=== PATIENT | female | born 1930 | race Caucasian/White ===

== ENCOUNTER 2016-07-20 08:31 | Inpatient (IN) | payer OTHER ==
--- NOTE | ~2016-07-20 | EKG ---
PATIENT: TOY SCHWARTZ UNIT #: [id number] Ventricular Rate: 81 BPM Atrial Rate: 81 BPM P-R Interval: 142 ms QRS Duration: 132 ms Q-T Interval: 382 ms QTC Calculation(Bezet): 443 ms P Sarg[place]: 85 degrees Calculated R Sarg[place]: 108 degrees Calculated T Sarg[place]: 28 degrees Diagnosis Line: Electronic ventricular pacemaker Diagnosis Line: When compared with ECG of 25-JUL-2016 10:46, Diagnosis Line: (unconfirmed) Diagnosis Line: Vent. rate has increased BY 8 BPM Diagnosis Line: Confirmed by LEOPOLDO MENDEZ MD ([id number]) on Diagnosis Line: 07/28/2016 1:11:55 PM INTERPRETING MD: CECIL
--- NOTE | ~2016-07-20 | EKG ---
PATIENT: TOY SCHWARTZ UNIT #: [id number] Ventricular Rate: 116 BPM Atrial Rate: 116 BPM P-R Interval: 146 ms QRS Duration: 130 ms Q-T Interval: 328 ms QTC Calculation(Bezet): 455 ms P [place]: 74 degrees Calculated R [place]: 106 degrees Calculated T [place]: 52 degrees Diagnosis Line: Sinus tachycardia Diagnosis Line: Rightward axis Diagnosis Line: Non-specific intra-ventricular conduction block Diagnosis Line: Abnormal ECG Diagnosis Line: When compared with ECG of 02-JUN-2015 17:44, Diagnosis Line: Vent. rate has increased BY 51 BPM Diagnosis Line: Non-specific intra-ventricular conduction block Diagnosis Line: has replaced Right bundle branch block Diagnosis Line: Confirmed by SHELDON SABILLON MD ([id number]) on 07/21/2016 Diagnosis Line: 10:35:54 AM INTERPRETING MD: RAMANDEEP MTZ
--- NOTE | ~2016-07-20 | CO ---
Unit #: [id number] #: [id number] Patient: TOY SCHWARTZ [id number] [address] [place], [place] [address] [id number] E MR#: [id number] NAME: TOY SCHWARTZ ROOM: Age: 86 Sex: F Admission Date: 07/20/2016 : 1930 Attending Physician: Portillo Mayo M.D. Primary Care Physician: Portillo Adame M.D. Consultation Date: 07/20/2016 CONSULTATION REPORT CHIEF COMPLAINT Shortness of breath. HISTORY OF PRESENT ILLNESS The patient is an 86-year-old female who has chronic obstructive pulmonary disease, bronchiectasis and is followed by Dr. Wiggins in our office. She has had a several day history of shortness of breath, wheezing and sputum production. She called the office and she was treated with doxycycline and a Medrol Dosepak with minimal improvement. Shortness of breath worsened and she presented here. It has been a gradually increasing degree of shortness of breath. She has had wheezing and mucopurulent sputum, but denies any fever or hemoptysis. She has had some left-sided pain that is worse with inhalation. She denies trauma. PAST MEDICAL HISTORY 1. Chronic obstructive pulmonary disease. 2. Bronchiectasis. 3. Chronic respiratory failure on 4 liters at home. 4. She has some type of arrhythmia requiring pacemaker insertion. Suspect sick sinus syndrome. She denies heart failure or coronary artery disease. 5. She has some degree of anxiety/depression. 6. Gastroesophageal reflux disease. 7. Diverticulosis. 8. Hyperlipidemia. SOCIAL HISTORY Remote tobacco use. She lives alone at home. She denies any recent hospitalizations. FAMILY HISTORY No familial lung disease. ALLERGIES Penicillin. She does not remember the reaction, "it was so long ago." Sulfa and codeine. HOME MEDICATIONS 1. Breo daily. 2. Duo-Nebs p.r.n. 3. Simvastatin. 4. Lasix. 5. Clonazepam. 6. Wellbutrin. Unit #: [id number] #: [id number] Patient: TOY SCHWARTZ 7. Aspirin. 8. Vitamin K is listed daily for unclear reasons. 9. Potassium daily. 10. Variety of multivitamins, including vitamin B12. REVIEW OF SYSTEMS No anginal type chest pain. No hemoptysis. No difficulty swallowing. No abdominal pain, melena or hematochezia, hematuria or dysuria, focal weakness, paresthesia. She has had some leg swelling if she does not take her Lasix, but that is relatively controlled if she takes her Lasix. No fever, chills, weight loss. Further review of systems negative. PHYSICAL EXAMINATION VITALS: Temperature 99.4, pulse 116, respiratory rate 20, blood pressure 159/70. She currently in on 4 liters with saturations 96%. HEENT: Pupils equal, round and reactive to light. Sclerae anicteric. Head atraumatic. No supraclavicular or cervical adenopathy appreciated. CHEST: Tight expiratory wheeze, best heard posteriorly. She has scattered crackles, but no definite consolidation. HEART: Regular rate and rhythm. No definite murmur, rub or gallop. ABDOMEN: Soft and nontender. No hepatomegaly or rebound. EXTREMITIES: No clubbing or cyanosis. Trace edema at best. Legs are nontender. Calves are nontender. Salbador sign is negative. NEUROLOGIC: Grossly intact. No focal muscle or sensory deficits. DIAGNOSTIC STUDIES IMAGING: Chest x-ray has some chronic changes. There may be some interstitial edema to my review. The radiologist is concerned about a left lower lobe pneumonia. The infiltrate is small and nonspecific. Pneumonia could not be ruled out. LABORATORY: BUN 14, creatinine 0.7, BNP 571. Lactic acid 1.1. CBC, white blood cell count 15.7, hemoglobin 12.3, platelets normal. Blood cultures performed and are pending. CARDIOVASCULAR: EKG appears to be a right bundle branch block. ASSESSMENT 1. Chronic obstructive pulmonary disease with exacerbation. 2. Chronic respiratory failure on 4 liters. 3. Abnormal chest x-ray. Possibly some degree of edema. Some degree of left lower lobe pneumonia. 4. History of pacemaker, followed by Dr. Hicks. 5. Bronchiectasis. 6. Medical problems listed above. PLAN Admission to the hospital. IV steroids. IV antibiotics for possible community acquired pneumonia. I will check a procalcitonin level. An echocardiogram will be performed for left ventricular function and PA pressures. A trial of IV Lasix will be given. Dictated by... Jass Haq M.D. ALEJANDRO/jed Unit #: [id number] #: [id number] Patient: TOY SCHWARTZ TD: 07/20/2016 12:00 JOB #: [id number] CC: Dona Mckee M.D. Matthew Bessen, M.D. CONSULTATION REPORT Page 1 of 1 X Jass Haq MD CONSULTATION REPORT
--- NOTE | ~2016-07-20 | EKG ---
PATIENT: TOY SCHWARTZ UNIT #: [id number] Ventricular Rate: 80 BPM Atrial Rate: 68 BPM P-R Interval: 136 ms QRS Duration: 166 ms Q-T Interval: 432 ms QTC Calculation(Bezet): 498 ms Calculated R [place]: -25 degrees Calculated T [place]: 123 degrees Diagnosis Line: Demand pacemaker; interpretation is based on Diagnosis Line: intrinsic rhythm Diagnosis Line: Sinus rhythm with marked sinus arrhythmia with Diagnosis Line: Premature ventricular complexes or Fusion Diagnosis Line: complexes Diagnosis Line: Left bundle branch block Diagnosis Line: Abnormal ECG Diagnosis Line: When compared with ECG of 20-JUL-2016 09:09, Diagnosis Line: Electronic demand pacing is now Present Diagnosis Line: Fusion complexes are now Present Diagnosis Line: Premature ventricular complexes are now Present Diagnosis Line: Left bundle branch block has replaced Non-specific Diagnosis Line: intra-ventricular conduction block Diagnosis Line: Confirmed by GABINO ANDERSON MD ([id number]) on 07/25/2016 Diagnosis Line: 10:00:34 PM INTERPRETING MD: JUSTIN MTZ
--- NOTE | ~2016-07-20 | CR72 ---
[facility] A Service of [facility] & [facility] RADIOLOGY TEXT RESULTS PATIENT: TOY SCHWARTZ LOCATION: A 216-01 : 30 UNIT #: [id number] AGE: [address]: Jass Haq MD SEX: F ORDER DR: [id number] [facility] [address] [place], [place] [address] [id number] E MR#: [id number] Acc #: [id number] NAME: TOY SCHWARTZ : 1930 SEX: F STUDY DATE/TIME: 07/20/2016 9:16 UNIT: BALDEV ROOM: STUDY DESCRIPTION: CR Chest Single View Portable Attending Physician: Portillo Mayo M.D. Ordering Physician: Portillo Mayo M.D. Primary Care Physician: Portillo Adame M.D. MEDICAL IMAGING REPORT This report is preliminary unless electronic signature is present EXAM AP portable chest 07/20/2016 09:16 HISTORY 86-year-old female with shortness of breath for 1 week. Former smoker. Pacemaker in place. COMPARISON AP portable chest radiograph 08/13/2015. FINDINGS Lungs are hyperinflated with emphysematous changes. Features of interstitial fibrosis are noted, also demonstrated to better advantage on the 02/09/2015 CT chest. Blunting of bilateral costophrenic angles are unchanged from prior examination, may represent chronic pleural scarring. Stable mild cardiac enlargement. Left chest wall pacemaker and leads appear stable. No visible pneumothorax. No acute osseous abnormality. Coarse interstitial thickening is present predominantly within the lower lung zones and within the periphery of the bilateral mid to upper lung zones, very similar to the 08/13/2015 examination, allowing for slight differences in technique. It also has a very similar appearance to the more remote 11/08/2014 examination. There is, however, more focal opacity in the medial left base obscuring the diaphragmatic margin. Superimposed atelectasis or pneumonia at that location is not excluded. IMPRESSION 1. Focal airspace disease in the medial left lung base obscuring the diaphragmatic margin appears new compared to prior studies. Left lower lobe atelectasis or pneumonia is not excluded. 2. Coarse interstitial fibrotic changes are present within both lungs, similar to the more remote study from 2015. Emphysematous changes. [facility] A Service of [facility] RADIOLOGY TEXT RESULTS PATIENT: TOY SCHWARTZ LOCATION: [facility] 216-01 : 30 UNIT #: [id number] AGE: [address]: Jass Haq MD SEX: F ORDER DR: Dictated by... Deonna Nayak M.D. THIS IS AN ELECTRONICALLY VERIFIED REPORT Deonna Nayak M.D. at 07/22/2016 7:13 AM CLAIRE/cynthia TD: 07/20/2016 09:37 JOB #: [id number] MEDICAL IMAGING REPORT Page 1 of 1 COPY
--- NOTE | ~2016-07-20 | CR72 ---
[facility] A Service of [facility] RADIOLOGY TEXT RESULTS PATIENT: TOY SCHWARTZ LOCATION: [place] [address]- : 30 UNIT #: [id number] AGE: [address]: Jass Haq MD SEX: F ORDER DR: [id number] [facility] [address] [place], [place] [address] [id number] I MR#: [id number] Acc #: [id number] NAME: TOY SCHWARTZ : 1930 SEX: F STUDY DATE/TIME: 07/26/2016 UNIT: [facility] ROOM: [facility] STUDY DESCRIPTION: CR Chest Single View Portable Attending Physician: Jass Haq M.D. Ordering Physician: Steve Wiggins M.D. Primary Care Physician: Portillo Adame M.D. MEDICAL IMAGING REPORT This report is preliminary unless electronic signature is present EXAM Chest 07/26/2016 1227 hours HISTORY 86-year-old woman with shortness of air, wheezing and COPD for 1 week. COMPARISON 07/21/2016. FINDINGS Portable upright chest demonstrates normal cardiac, mediastinal and hilar contours. There is stable dual-lead left subclavian pacer. The lungs are hyperinflated, likely with underlying emphysematous change. There is mild chronic interstitial change similar to 07/21/2016. There is stable blunting of both costophrenic sulci. IMPRESSION No appreciable change from 07/21/2016. There is underlying emphysematous change with chronic bilateral interstitial changes which are stable. There is chronic blunting of both costophrenic sulci consistent with small effusions or pleural thickening, unchanged from 07/21/2016. Dictated by... Sosa Park M.D. THIS IS AN ELECTRONICALLY VERIFIED REPORT Sosa Park M.D. at 07/27/2016 9:16 AM TRACE/lito TD: 07/26/2016 16:14 JOB #: [id number] [facility] A Service of [facility] RADIOLOGY TEXT RESULTS PATIENT: TOY SCHWARTZ LOCATION: [facility] 55- : 30 UNIT #: [id number] AGE: [address]: Jass Haq MD SEX: F ORDER DR: MEDICAL IMAGING REPORT Page 1 of 1 COPY
--- NOTE | ~2016-07-20 | DS ---
Unit #: [id number] #: [id number] Patient: TOY SCHWARTZ [id number] [place] [id number] I MR#: [id number] NAME: TOY SCHWARTZ ROOM: 557 Age: 86 Sex: F Admission Date: 07/20/2016 : 1930 Discharge Date: 07/27/2016 Attending Physician: Jass Haq M.D. Primary Care Physician: Portillo Adame M.D. DISCHARGE SUMMARY DISCHARGE DIAGNOSES 1. Acute systolic congestive heart failure. 2. Chronic obstructive pulmonary disease exacerbation. 3. Acute and chronic hypoxic respiratory failure. 4. Bronchiectasis. 5. Mobitz type II wilberto arrhythmia with right bundle branch block requiring dual-chamber permanent pacemaker. 6. Epistaxis, resolved. 7. Constipation. 8. Coronary artery disease, status post stent, I believe to the mid left anterior descending. DISCHARGE MEDICATIONS 1. Combivent nebulizer q.i.d. plus p.r.n. 2. Prednisone 40 mg for two days, decrease by 10 mg every two days until off. 3. Mag-Ox 400 mg daily. 4. Wellbutrin XL 150 mg daily. 5. Clonazepam 0.5 mg b.i.d. as needed for anxiety. 6. Coreg 6.25 mg twice daily. 7. Fluticasone/vilanterol one inhalation daily (Breo) 100. 8. Lasix 40 mg p.o. daily. 9. Simvastatin 80 mg p.o. nightly. 10. Lisinopril 10 mg daily. 11. Zithromax 250 daily x3 days. 12. Multivitamin one daily. 13. Aspirin 81 mg daily. 14. Brilinta 90 mg twice daily. 15. Spironolactone 25 mg daily. 16. Nitroglycerin 0.4 mg subcutaneous every five minutes x3 as needed for chest pain. 17. Ascorbic acid 500 mg daily. 18. Cyanocobalamin 1000 mg daily. 19. Vision Formula 50+ one tablet daily. 20. Colace 100 mg b.i.d. 21. Lactulose 30 p.o. q.4 hours p.r.n. constipation. 22. Continue home oxygen at current level. 23. [place] Nasal [place] as needed. HOSPITAL COURSE The patient has a history of underlying COPD and chronic respiratory failure, maintained on O2 at 4 L. She presented with increasing shortness of breath. She had been treated as an outpatient with antibiotics, Medrol Dosepak without improvement and was admitted. She is followed by Unit #: [id number] #: [id number] Patient: TOY SCHWARTZ at [facility] and by myself in my office for COPD. She has a history of permanent pacemaker. Upon admission, her chest x-ray showed chronic changes. No acute infiltrate. BMP was unremarkable. White count was 15,700, hematocrit was 39, platelet count was normal. She was admitted, treated with inhaled bronchodilators, IV Solu Medrol, covered with antibiotics. Myocardial infarction was ruled out. She had an echocardiogram done which showed severely decreased ejection fraction of 20% to 25% with moderate generalized hypokinesis of the LV. There is also grade 1 diastolic dysfunction. There was moderately enlarged right ventricular cavity with reduced right ventricular function, moderate mitral regurgitation with posteriorly directed jet. She was seen by cardiology. She was gently diuresed. Medications were adjusted. She underwent cardiac cath, was found to have a mid LAD lesion which was stented. She was placed on (1) . Followup chest x-ray was done and showed no change. Previous CT scans have demonstrated COPD and bronchiectasis. She is now being discharged to rehab and will follow up in my office in approximately one month and follow up with cardiology per their recommendations. Dictated by... Dona Hanna/mariah TD: 07/27/2016 16:35 JOB #: [id number] DISCHARGE SUMMARY Page 1 of 1 X Steve Wiggins MD X DISCHARGE SUMMARY
--- NOTE | ~2016-07-20 | CO ---
Unit #: [id number] #: [id number] Patient: TOY SCHWARTZ [id number] [address] [address] [id number] I MR#: [id number] NAME: TOY SCHWARTZ ROOM: 216 Age: 86 Sex: F Admission Date: 07/20/2016 : 1930 Attending Physician: Jass Haq M.D. Primary Care Physician: Portillo Adame M.D. CONSULTATION REPORT REASON FOR CONSULTATION We were asked to see for congestive heart failure management. HISTORY OF PRESENT ILLNESS Ms. Schwartz presented with a week and a half history of worsening shortness of air. This lady has a history of severe COPD, 4 L O2 dependent, who has chronic shortness of breath that worsened over the last week and a half. She did have a round of antibiotics, doxycycline, and Medrol Dosepak for complaints of shortness of air, wheezing, and sputum production, but she did not improve, so she presented to the hospital. She states that on her left lung, she has pain that is worse with inhalation. She has a history of following with Dr. Hicks in our office. She had a bradyarrhythmia second-degree Mobitz II AV block and right bundle branch block and underwent a permanent pacemaker on 08/13/2015, [employer]onic Adaptdonna with Dr. Huang. She has a history of dyslipidemia, remote tobacco abuse, as well as high cholesterol. PAST MEDICAL HISTORY 1. Severe COPD, 4 L O2 dependent 26/09. 2. Obstructive sleep apnea. 3. Bronchiectasis. 4. Chronic respiratory failure. 5. Mobitz II Bradyarrhythmia with right bundle branch block, requiring dual-chamber permanent pacemaker. 6. Gastroesophageal reflux disease. 7. Diverticulitis. 8. Dyslipidemia. 9. Anxiety and depression disorder. SOCIAL HISTORY Quit tobacco somewhere around 1993 or before. She is . FAMILY HISTORY She does have a brother and a father, who had heart disease, what she knows is nonspecific. PAST SURGICAL HISTORY Cholecystectomy, tonsillectomy, hysterectomy, evacuation of a subdural hematoma, EGD in 2007 which showed chronic gastritis, permanent pacemaker on 08/13/2015, Medtronic Adapta with Dr. Huang. HOME MEDICATIONS Doxycycline 100 mg b.i.d. for 5 days that was started on 07/16/2016; Unit #: [id number] #: [id number] Patient: TOY SCHWARTZ Medrol Dosepak 4 mg daily for 6 days, which was tapered; Breo Ellipta 100/25 one inhalation daily; ipratropium and albuterol mini-nebs q.i.d.; Zocor 80 mg daily; Vision formula vitamin daily; vitamin E 1000 units daily; vitamin C 500 mg daily; multivitamin tablet daily; vitamin B12 1000 mcg daily; potassium gluconate 595 mg daily. ALLERGIES The patient is allergic to penicillin, sulfa, and codeine. REVIEW OF SYSTEMS CONSTITUTIONAL: No fevers, no chills. HEENT: No difficulty swallowing. CHEST: No chest pain or chest pressure. No burning. Positive for chronic shortness of air. GI: No diarrhea. No constipation. No bright red bleeding per rectum. No melena. : No hematuria. EXTREMITIES: Positive lower extremity edema. NEUROLOGIC: No syncope. No falls. PHYSICAL EXAMINATION GENERAL: Well developed, well nourished, elderly white female, who is a fairly good historian. Daughter at bedside. In no acute distress. VITAL SIGNS: Temperature 98.3, pulse 92, respirations 18, blood pressure 126/74, 5 feet 0 inches, weight 69 kg. HEENT: Normocephalic and atraumatic. No xanthelasma. Jugular is only mildly full. LUNGS: Decreased bases bilaterally. Right base with crackles and an inspiratory pop. Wheezing anteriorly. HEART: S1 and S2. No S3, S4. Soft systolic murmur. No lift. ABDOMEN: Positive bowel sounds. EXTREMITIES: 1 to 2+ bilateral lower extremity pitting edema. 2+ pulses bilaterally. Mildly kyphotic spine. NEUROLOGIC: Speech clear and appropriate. No facial drooping. Moving all extremities spontaneously with equal strength. DIAGNOSTIC STUDIES IMAGING STUDIES: Chest x-ray on 07/21/2016 shows stable background interstitial opacity. Small bilateral pleural effusions. Stable density in the left base, which may be atelectasis or pneumonia. LABORATORY RESULTS: Chemistry; sodium 142, potassium 3.6, chloride 97, CO2 33, BUN 21, creatinine 0.7, glucose 159. Troponin 0.03. Brain natriuretic peptide 571. Lactic acid 1.7. Procalcitonin 0.09. Hematology; hemoglobin 11.8, hematocrit 37.3, white blood cell count 16.6, platelet count 441. ASSESSMENT AND PLAN 1. Acute systolic congestive heart failure with new left ventricular dysfunction. 2D echocardiogram shows an ejection fraction of 20% to 25%. Moderate generalized hypokinesis of the left ventricle, [id number] concentric left ventricular hypertrophy. E-to-E is 19, grade 1 impaired relaxation, moderate mitral regurgitation, mild tricuspid regurgitation with right ventricular systolic pressure of 21. 2. History of second-degree AV block, right bundle branch block with bradyarrhythmia, requiring dual-chamber pacemaker. 3. Chronic severe chronic obstructive pulmonary disease with acute exacerbation of chronic obstructive pulmonary disease. Unit #: [id number] #: [id number] Patient: SCHWARTZ,TOY 4. History of bronchiectasis. The patient was seen in consultation with Dr. Alvarez recommending that she undergo right and left heart catheterization to rule out coronary artery disease, rule out pacemaker lead induced severe tricuspid regurgitation causing right ventricular heart failure. We will add Lasix IV 20 mg IV b.i.d., Aldactone 25 daily, lisinopril 10 daily, Coreg 3.125 mg b.i.d., potassium 20 mEq daily. 1000 mL fluid restriction. Right and left heart catheterization has been scheduled with Dr. Doe for 07/25/2016. Dictated by... Kandy Ardon/ajayl TD: 07/23/2016 04:03 JOB #: [id number] CONSULTATION REPORT Page 1 of 1 X X CONSULTATION REPORT
--- NOTE | ~2016-07-20 | EKG ---
PATIENT: TOY SCHWARTZ UNIT #: [id number] Ventricular Rate: 73 BPM Atrial Rate: 73 BPM P-R Interval: 152 ms QRS Duration: 138 ms Q-T Interval: 406 ms QTC Calculation(Bezet): 447 ms P [place]: 82 degrees Calculated R [place]: 91 degrees Calculated T [place]: 45 degrees Diagnosis Line: Atrial-sensed ventricular-paced rhythm with Diagnosis Line: frequent AV dual-paced complexes Diagnosis Line: Abnormal ECG Diagnosis Line: When compared with ECG of 25-JUL-2016 07:25, Diagnosis Line: (unconfirmed) Diagnosis Line: Electronic ventricular pacemaker has replaced Diagnosis Line: Sinus rhythm Diagnosis Line: Confirmed by RO MALHOTRA MD ([id number]) on Diagnosis Line: 07/27/2016 8:44:24 AM INTERPRETING MD: MARYA MTZ
--- NOTE | ~2016-07-20 | CR63 ---
[facility] A Service of [facility] & [facility] RADIOLOGY TEXT RESULTS PATIENT: TOY SCHWARTZ LOCATION: C2A 216-01 : 30 UNIT #: [id number] AGE: [address]: Jass Haq MD SEX: F ORDER DR: [id number] [facility] [address] [place], [place] [address] [id number] I MR#: [id number] Acc #: [id number] NAME: TOY SCHWARTZ : 1930 SEX: F STUDY DATE/TIME: 07/21/2016 11:27 UNIT: C2A ROOM: 216 STUDY DESCRIPTION: CR Chest 2 View Attending Physician: Jass Haq M.D. Ordering Physician: Jass Haq M.D. Primary Care Physician: Portillo Adame M.D. MEDICAL IMAGING REPORT This report is preliminary unless electronic signature is present EXAM AP and lateral chest INDICATION Shortness of breath and cough for 1 day. COMPARISON Comparison from yesterday. FINDINGS Stable opacity in the left base which may represent pneumonia. Continued follow up to clearing is recommended. Stable bilateral interstitial opacities. Small bilateral pleural effusions. Heart size stable. IMPRESSION 1. Stable background interstitial opacities. 2. Small bilateral pleural effusions. 3. There is stable density in the left base which may be atelectasis or pneumonia. Follow up to clearing is recommended. Dictated by... Jeremiah Mitchell M.D. THIS IS AN ELECTRONICALLY VERIFIED REPORT Jeremiah Mitchell M.D. at 07/22/2016 7:35 AM RADHA/abdoul TD: 07/21/2016 11:56 JOB #: [id number] MEDICAL IMAGING REPORT Page 1 of 1 COPY
[~2016-07-20 08:31] MED LIST: ADVAIR 1001 DISK W/D PO; ADVAIR 250-501 EACH IH; ADVAIR 2501 DISK W/D PO; ALBUTEROL 0.5ML INH; ALBUTEROL17 GM INH; ALBUTEROL17 GM NEB; ASCORBIC ACID500 MG PO; ASPIRIN PO; ATIVAN PO; B COMPLEX1 TAB PO; BUPROPION HCL150 M1 PO; BUPROPION XL150 MG PO; CALCIUM 500 + D1 TAB PO; CALCIUM 600 +1 EA12; CALCIUM 600 +1 EA12 PO; CALCIUM/MAG/ZINC PO; CENTRUM PO; DUONEB 2.5-0.5 M3 ML NEB; ECHINACEA500 MG PO; FISH OIL 1,0001 CAP PO; FISH OIL 1,2001 CAP PO; FISH OIL300 MG PO; FUROSEMIDE40 MG PO; KLONOPIN0.5 MG PO; LEVAQUIN PO; LEVAQUIN250 MG PO; MAGNESIUM400 MG PO; METAMUCIL0.52 G PO; MUCINEX PO; MULTI VITAMIN1 EACH PO; MULTI-VITAMIN1 TAB PO; NASAL 02; NATURAL VITA400 UNI2 PO; OXYGEN; OYSTER CALCIUM500 MG PO; POTASSIUM GLUCO99 MG PO; POTASSIUM99 M1 PO; PREDNISONE PO; PREDNISONE10 MG/DOSE PO; PROTONIX PO; PROVIGIL; PROZAC PO; SERTRALINE HCL50 MG PO; SIMVASTATIN80 MG PO; SPIRIVA18 MCG INH; ST. JOSEPH ASPI81 M2 PO; VISION FORMULA PO; VISION VITAMIN1 EACH PO; VIT C PO; VITAMIN C PO; VITAMIN C1000 M2 PO; VITAMIN D31000 UNI1 PO; VITAMIN E1000 UNIT PO; VITAMINE C PO; VYTORIN 10/20 T1 TAB PO; ZEGERID40 MG/PKT PO; ZOCOR PO
[2016-07-20 09:14] LABS: BASOPHIL% 0.1 % (0-2.5); DIFF IND YES; EOSINOPHIL% 0.1 % (0.0-7.0); HEMOGLOBIN 12.3 gm/dL (12.0-16.0); LYMPHOCYTE# 1.7 X10e3 (1.0-3.5); LYMPHOCYTE% 11.1 % (17.0-45.0); MEAN CELL VOLUME 91.7 FL (83-96); MEAN CORPUSCULAR HGB CONC 31.6 g/dL (30-36); MEAN PLATELET VOLUME 7.9 FL (6.5-11.5); MONOCYTE# 1.8 X10e3 (0-1.0); MONOCYTE% 11.4 % (3.0-12.0); NEUTROPHIL# 12.1 X10e3 (1.5-7.1); NEUTROPHIL% 77.3 % (40-75); PLATELET COUNT 405 X10e3 (140-420); RED BLOOD COUNT 4.26 X10e (3.90-5.30); RED CELL DISTRIBUTION WIDTH 13.8 % (11.0-15.5); WHITE BLOOD COUNT 15.7 X10e3 (4.0-10.5)
[2016-07-20] MEDS ORDERED: DOXYCYCLINE HY100 M4 PO (09:29)
[2016-07-20] MEDS ORDERED: MEDROL DOSEPAK4 MG PO (09:31)
[2016-07-20] MEDS ORDERED: BREO ELLIPTA 11 EACH INH (09:32)
[2016-07-20] MEDS ORDERED: IPRATR-ALBUTEROL3 ML INH (09:33)
[2016-07-20] MEDS ORDERED: SIMVASTATIN80 MG PO (09:33)
[2016-07-20] MEDS ORDERED: LASIX20 MG PO (09:34)
[2016-07-20] MEDS ORDERED: CLONAZEPAM0.5 MG PO (09:35)
[2016-07-20 09:36] LABS: CALCIUM SERUM 9.8 mg/dL (8.4-10.2); CREATININE SERUM 0.7 mg/dL (0.6-1.4); GLOM FILT RATE Estimated 78.5 mL/min (>60); POTASSIUM 4.2 mmol/L (3.5-5.1)
[2016-07-20] MEDS ORDERED: ASPIRIN81 MG PO (09:36)
[2016-07-20] MEDS ORDERED: WELLBUTRIN XL150 M2 PO (09:36)
[2016-07-20] MEDS ORDERED: VITAMIN K100 MCG PO (09:36)
[2016-07-20] MEDS ORDERED: VISION FORMULA 50+ PO (09:37)
[2016-07-20] MEDS ORDERED: VITAMIN E1000 UNI1 PO (09:37)
[2016-07-20] MEDS ORDERED: VITAMIN C500 MG PO (09:40)
[2016-07-20] MEDS ORDERED: MULTI VITAMIN1 EACH PO (09:41)
[2016-07-20] MEDS ORDERED: B-121000 MC1 PO (09:42)
[2016-07-20] MEDS ORDERED: POTASSIUM GLUC500 MG PO (09:43)
[2016-07-20 10:49] LABS: PLATELET ESTIMATE NORMAL (NORMAL)
[2016-07-20 10:50] LABS: ANISOCYTOSIS SL; RBC NORMAL YES
[2016-07-21 06:12] LABS: HEMATOCRIT 37.3 % (35.0-45.0); HEMOGLOBIN 11.8 gm/dL (12.0-16.0); MEAN CELL VOLUME 91.5 FL (83-96); MEAN CORPUSCULAR HEMOGLOBIN 28.9 PG (28-34); MEAN CORPUSCULAR HGB CONC 31.6 g/dL (30-36); RED BLOOD COUNT 4.08 X10e (3.90-5.30); RED CELL DISTRIBUTION WIDTH 13.8 % (11.0-15.5); WHITE BLOOD COUNT 16.6 X10e3 (4.0-10.5)
[2016-07-21 08:14] LABS: CREATININE SERUM 0.7 mg/dL (0.6-1.4); GLOM FILT RATE Estimated 78.5 mL/min (>60); POTASSIUM 3.6 mmol/L (3.5-5.1)
[2016-07-23 05:50] LABS: HEMATOCRIT 35.3 % (35.0-45.0); HEMOGLOBIN 11.2 gm/dL (12.0-16.0); MEAN CELL VOLUME 90.3 FL (83-96); MEAN CORPUSCULAR HEMOGLOBIN 28.5 PG (28-34); MEAN CORPUSCULAR HGB CONC 31.6 g/dL (30-36); MEAN PLATELET VOLUME 7.2 FL (6.5-11.5); RED BLOOD COUNT 3.91 X10e (3.90-5.30); RED CELL DISTRIBUTION WIDTH 14.2 % (11.0-15.5); WHITE BLOOD COUNT 13.5 X10e3 (4.0-10.5)
[2016-07-23 06:34] LABS: BUN/CREATININE RATIO 41.25; CALCIUM SERUM 9.3 mg/dL (8.4-10.2); CREATININE SERUM 0.8 mg/dL (0.6-1.4); GLOM FILT RATE Estimated 66.8 mL/min (>60)
[2016-07-24 05:48] LABS: CALCIUM SERUM 9.5 mg/dL (8.4-10.2); CREATININE SERUM 0.8 mg/dL (0.6-1.4); GLOM FILT RATE Estimated 66.8 mL/min (>60); MAGNESIUM 2.3 mg/dL (1.6-3.0); POTASSIUM 4.5 mmol/L (3.5-5.1)
[2016-07-25 05:27] LABS: PARTIAL THROMBOPLASTIN TIME 23.7 SECONDS (23.5-31.3); PROTHROMBIN TIME (PATIENT) 10.4 SECONDS (9.6-11.5)
[2016-07-25 05:30] LABS: BASOPHIL% 0.1 % (0-2.5); EOSINOPHIL# 0.1 X10e3 (0-0.7); EOSINOPHIL% 0.8 % (0.0-7.0); HEMATOCRIT 35.1 % (35.0-45.0); HEMOGLOBIN 11.2 gm/dL (12.0-16.0); LYMPHOCYTE# 3.3 X10e3 (1.0-3.5); LYMPHOCYTE% 22.8 % (17.0-45.0); MEAN CELL VOLUME 90.7 FL (83-96); MONOCYTE# 1.1 X10e3 (0-1.0); MONOCYTE% 7.5 % (3.0-12.0); NEUTROPHIL# 9.9 X10e3 (1.5-7.1); NEUTROPHIL% 68.8 % (40-75); PLATELET COUNT 366 X10e3 (140-420); RED BLOOD COUNT 3.87 X10e (3.90-5.30); RED CELL DISTRIBUTION WIDTH 13.7 % (11.0-15.5); WHITE BLOOD COUNT 14.4 X10e3 (4.0-10.5)
[2016-07-25 05:43] LABS: DIFF IND YES
[2016-07-25 06:13] LABS: PLATELET ESTIMATE NORMAL (NORMAL); RBC NORMAL YES
[2016-07-25 06:37] LABS: CALCIUM SERUM 9.2 mg/dL (8.4-10.2); CREATININE SERUM 0.7 mg/dL (0.6-1.4); GLOM FILT RATE Estimated 78.5 mL/min (>60); POTASSIUM 3.8 mmol/L (3.5-5.1)
[2016-07-25 19:05] LABS: ANGIO %MB 8.4 % (0.0-4.0); ANGIO MB 7.3 ng/ml
[2016-07-26 03:35] LABS: CALCIUM SERUM 8.8 mg/dL (8.4-10.2); CREATININE SERUM 0.8 mg/dL (0.6-1.4); GLOM FILT RATE Estimated 66.8 mL/min (>60); POTASSIUM 4.4 mmol/L (3.5-5.1)
[2016-07-26 03:48] LABS: ANGIO %MB 7.8 % (0.0-4.0)
== END 2016-07-27 17:18 | DRG 246 ==
LOC: CED 08:31 → CEDOF 11:30 → C2A 11:30 → CED 11:51 → CEDOF 11:51 → C2A 13:32 → C5B 07-25 00:21
PROVIDERS: Emergency Medicine; Internal Medicine; Internal Medicine Cardiovascular Disease
PROC: B24BZZZ Ultrasonography of Heart with Aorta (ICD-10-PCS; 2016-07-21)
PROC: 027034Z Dilation of Coronary Artery, One Artery with Drug-eluting Intraluminal Device, Percutaneous Approach (ICD-10-PCS; principal; 2016-07-25)
PROC: 4A023N8 Measurement of Cardiac Sampling and Pressure, Bilateral, Percutaneous Approach (ICD-10-PCS; 2016-07-25)
PROC: B2151ZZ Fluoroscopy of Left Heart using Low Osmolar Contrast (ICD-10-PCS; 2016-07-25)
PROC: B2111ZZ Fluoroscopy of Multiple Coronary Arteries using Low Osmolar Contrast (ICD-10-PCS; 2016-07-25)
DX: I11.0 Hypertensive heart disease with heart failure (principal); J96.21 Acute and chronic respiratory failure with hypoxia; J44.1 Chronic obstructive pulmonary disease with (acute) exacerbation; I50.21 Acute systolic (congestive) heart failure; Z87.891 Personal history of nicotine dependence; I45.10 Unspecified right bundle-branch block; Z95.0 Presence of cardiac pacemaker; I44.1 Atrioventricular block, second degree; K59.00 Constipation, unspecified; R04.0 Epistaxis; I25.10 Atherosclerotic heart disease of native coronary artery without angina pectoris; I08.1 Rheumatic disorders of both mitral and tricuspid valves; E78.5 Hyperlipidemia, unspecified; G47.33 Obstructive sleep apnea (adult) (pediatric); K21.9 Gastro-esophageal reflux disease without esophagitis; Z90.49 Acquired absence of other specified parts of digestive tract; Z90.710 Acquired absence of both cervix and uterus; Z88.0 Allergy status to penicillin; Z88.2 Allergy status to sulfonamides; Z88.5 Allergy status to narcotic agent; Z82.49 Family history of ischemic heart disease and other diseases of the circulatory system
CPT/HCPCS: 36415; 71010; 71020; 80048; 80061; 82308; 82550; 82553; 82810; 83605; 83735; 83880; 84484; 85025; 85027; 85347; 85610; 85730; 87040; 87070; 87205; 93005; 93306; 94640; 94664; 94760; 96365; 96375; 97110; 97116; 97162; 97165; 97530; 97535; 99285; C1725; C1769; C1874; C1894; G8978-GP; G8979-GP; G8987-GO; G8988-GO; J0153; J0456; J0461; J0692; J0696; J1644; J1940; J2250; J2270; J2405; J2920; J2930; J3010; J3260

== ENCOUNTER 2016-09-07 11:29 | Emergency (ER) | payer OTHER ==
--- NOTE | ~2016-09-07 | CR72 ---
[facility] A Service of [facility] RADIOLOGY TEXT RESULTS PATIENT: TOY SCHWARTZ LOCATION: [facility] : 30 UNIT #: [id number] AGE: [address]: Dom Medellin MD SEX: F ORDER DR: [id number] [facility] [address]. [place], [place] [address] [id number] MR#: [id number] #: [id number] NAME: TOY SCHWARTZ : 1930 SEX: F STUDY DATE/TIME: UNIT: [facility] ROOM: STUDY DESCRIPTION: CR Chest Single View Portable Attending Physician: Dom Medellin M.D. Ordering Physician: Dom Medellin M.D. Primary Care Physician: Kiki Braxton M.D. MEDICAL IMAGING REPORT This report is preliminary unless electronic signature is present EXAM EXAM Chest portable 09/07/2016 1321 hours HISTORY 86-year-old with complaint of shortness of air and anxiety since yesterday. COMPARISON 07/26/2016 FINDINGS Single portable upright view demonstrates normal heart size with a stable dual lead pacer device. Mediastinal and hilar contours are normal. There is increase in the interstitial markings in the mid and lower lungs progressive from 07/26/2016. This raises concern for mild interstitial edema. No definite effusions are seen. IMPRESSION Normal heart size with stable pacer device. There is slight increase in interstitial markings in the mid and lower lungs as compared to 07/26/2016 which could indicate mild interstitial edema. There is no definite effusion or pneumothorax. Dictated by... Sosa Park M.D. THIS IS AN ELECTRONICALLY VERIFIED REPORT Sosa Park M.D. at 09/07/2016 8:32 PM SMM/to TD: 09/07/2016 17:20 JOB #: [id number] [facility] A Service of [facility] RADIOLOGY TEXT RESULTS PATIENT: TOY SCHWARTZ LOCATION: [facility] : 30 UNIT #: [id number] AGE: [address]: Dom Medellin MD SEX: F ORDER DR: MEDICAL IMAGING REPORT Page 1 of 1 COPY
--- NOTE | ~2016-09-07 | EKG ---
PATIENT: TOY SCHWARTZ UNIT #: [id number] Ventricular Rate: 72 BPM Atrial Rate: 63 BPM P-R Interval: 182 ms QRS Duration: 108 ms Q-T Interval: 386 ms QTC Calculation(Bezet): 422 ms P Venus: 113 degrees Calculated R Venus: 87 degrees Calculated T Venus: 88 degrees Diagnosis Line: AV dual-paced rhythm with occasional Premature Diagnosis Line: ventricular complexes Diagnosis Line: Abnormal ECG Diagnosis Line: When compared with ECG of 26-JUL-2016 05:53, Diagnosis Line: Premature ventricular complexes are now Present Diagnosis Line: Vent. rate has decreased BY 9 BPM Diagnosis Line: Confirmed by RO MALHOTRA MD ([id number]) on Diagnosis Line: 09/09/2016 7:55:58 AM INTERPRETING MD: MARYA MTZ
[~2016-09-07 11:29] MED LIST changes: +ASPIRIN81 MG PO; +B-121000 MC1 PO; +BREO ELLIPTA 11 EACH INH; +CLONAZEPAM0.5 MG PO; +DOXYCYCLINE HY100 M4 PO; +IPRATR-ALBUTEROL3 ML INH; +LASIX20 MG PO; +MEDROL DOSEPAK4 MG PO; +POTASSIUM GLUC500 MG PO; +VISION FORMULA 50+ PO; +VITAMIN C500 MG PO; +VITAMIN E1000 UNI1 PO; +VITAMIN K100 MCG PO; +WELLBUTRIN XL150 M2 PO
== END 2016-09-07 14:30 | disposition home or self-care (01) ==
LOC: CED 11:29
DX: F41.9 Anxiety disorder, unspecified (principal); J44.9 Chronic obstructive pulmonary disease, unspecified; Z90.49 Acquired absence of other specified parts of digestive tract; Z88.0 Allergy status to penicillin; Z88.2 Allergy status to sulfonamides; Z79.899 Other long term (current) drug therapy
CPT/HCPCS: 71010; 93005; 94640; 99284

== ENCOUNTER 2016-11-04 16:57 | Inpatient (IN) | payer OTHER ==
[~2016-11-04] VITALS: Ht 152.4 cm; Wt 63.6 kg
--- NOTE | ~2016-11-04 | HP ---
Unit #: [id number] #: [id number] Patient: TOY SCHWARTZ [id number] [place], [place] [address] [id number] I MR#: [id number] NAME: TOY SCHWARTZ ROOM: 320 Age: 86 Sex: F Admission Date: 11/04/2016 : 1930 Attending Physician: Kiera Penaloza M.D. Primary Care Physician: Kiki Braxton M.D. HISTORY AND PHYSICAL CHIEF COMPLAINT Nausea, vomiting, diarrhea. HPI The patient is an 86-year-old female with past medical history of congestive heart failure, coronary artery disease, hyperlipidemia, Mobitz type 2, severe COPD, chronic respiratory failure, obstructive sleep apnea, GERD, anxiety/depression who presented to the emergency department for evaluation of the above. The patient states that she was in her usual state of health until this afternoon when she developed nausea, vomiting, diarrhea, and abdominal pain. She has had 5-6 bouts of nonbloody emesis and "too numerous to count" bouts of watery diarrhea. She states that she has had cramping in the lower abdomen. She denies any fever. No chest pain. She has a cough at baseline. She states that it is not worse than usual. She was on antibiotics, most recently Macrobid with last dose being November 01, 2016, for urinary tract infection. In the emergency department, initial temperature was 94.6, blood pressure 70/35. CT of the abdomen and pelvis showed no acute intraabdominal abnormality. Possible right lower lobe bronchitis was noted. Urinalysis is pending. White blood cell count is 18.9. Lactic acid 1.7. She was given 1 liter of normal saline as well as 4 mg of Zofran, 20 mg of Pepcid. Levaquin has been ordered. She is being admitted to [facility] for evaluation and further treatment. PAST MEDICAL HISTORY 1. Admission to [facility] July 20 through the 2016 for acute systolic congestive heart failure. The patient had an echocardiogram that showed severely decreased ejection fraction of 20% to 25% with moderate generalized hypokinesis of the left ventricle and grade 1 diastolic dysfunction per the discharge summary. She underwent cardiac catheterization as well and was found to have a mid LAD lesion, which was stented. 2. Congestive heart failure with ejection fraction of 20% to 25% noted on echocardiogram in July of 2016. 3. Coronary artery disease, status post cardiac stent placement followed by Dr. Hicks. 4. Hyperlipidemia. 5. Mobitz type 2 bradyarrhythmia with right bundle branch block status post pacemaker placement. 6. Severe COPD followed by Dr. Wiggins. 7. Chronic respiratory failure on 4 liters of oxygen per nasal cannula. Unit #: [id number] #: [id number] Patient: TOY SCHWARTZ 8. Obstructive sleep apnea. 9. GERD. 10. Anxiety/depression. PAST SURGICAL HISTORY 1. Pacemaker placement. 2. Cardiac catheterization in July of 2016. I do not see an operative note. She underwent stent placement per the discharge summary from July 27, 2016. 3. Hysterectomy. 4. Tonsillectomy. 5. Cholecystectomy. 6. Cataract surgery. 7. EGD and colonoscopy. SOCIAL HISTORY The patient lives alone. She quit smoking 25 years ago. She has a walker, but does not use it consistently. FAMILY HISTORY Notable for her dad having colon cancer as well as heart disease. ALLERGIES Penicillin, sulfa, codeine. MEDICATIONS Home medications per the discharge summary from July 27, 2016, include Combivent, magnesium, Wellbutrin, clonazepam, Coreg, fluticasone, Lasix, simvastatin, lisinopril, multivitamin, aspirin, Brilinta, spironolactone, nitroglycerin, ascorbic acid, cyanocobalamin, Colace, lactulose, vision formula, home oxygen, [place] nasal spray. Home medications will need to be reviewed and verified. REVIEW OF SYSTEMS A complete review of systems is negative, except as indicated in the HPI. DIAGNOSTIC STUDIES CARDIOVASCULAR: EKG shows paced rhythm with rate of 70 beats per minute. IMAGING: CT of the abdomen and pelvis shows no acute abdominal abnormality. Right lower lobe bronchitis is noted as well as stable lung nodule. LABORATORY: Troponin is less than 0.05. INR is 1. Lactic acid 1.7. Comprehensive metabolic panel notable for glucose of 163; BUN and creatinine 32 and 2, respectively; calcium is 10.3. Lipase 39. Complete blood count notable for white blood cell count of 18.9; hemoglobin and hematocrit 11.4 and 35.2, respectively. PHYSICAL EXAMINATION VITAL SIGNS: Temperature initially 94.6, most recently 97.8; pulse 70; respirations 16; blood pressure 70/35, most recently 120/41 following 1 liters of normal saline. GENERAL: The patient is a female who is awake and alert in mild distress. HEENT: The head is atraumatic. Mucous membranes are dry. NECK: Supple. Trachea is midline. CARDIOVASCULAR: Regular rate and rhythm. Unit #: [id number] #: [id number] Patient: SCHWARTZ,TOY LUNGS: Demonstrate decreased breath sounds bilaterally. Breathing is not labored with conversation. ABDOMEN: Soft. She is tender to palpation in the lower quadrants. Bowel sounds are present in all four quadrants. EXTREMITIES: Show trace edema. NEURO: The patient is awake and alert. She follows commands. PSYCH: Mood and affect are normal. The patient is cooperative. SKIN: Skin of examined areas is warm and dry. ASSESSMENT The patient is an 86-year-old female with: 1. Sepsis with initial lactic acid of 1.7. 2. Diarrhea concerning for possible Clostridium difficile. 3. Acute kidney injury. The patient's creatinine was 0.8 on July 26, 2016. It is 2 today. 4. Congestive heart failure with ejection fraction of 20% to 25% noted on echocardiogram in July of 2016. 5. Coronary artery disease, status post cardiac stent placement, followed by Dr. Hicks. 6. Hyperlipidemia. 7. Mobitz type 2, status post pacemaker placement. 8. Severe chronic obstructive pulmonary disease followed by Dr. Wiggins. 9. Chronic respiratory failure on 4 liters of oxygen per nasal cannula. 10. Obstructive sleep apnea. 11. Gastroesophageal reflux disease. 12. Anxiety/depression. 13. Former smoker. PLAN 1. Admit to intermediate level. 2. NPO and will advanced to clear liquids as tolerated. 3. Normal saline at 75 mL an hour. 4. Blood cultures x2. 5. Stool for ova and parasites. C. diff. culture and sensitivity. 6. Levaquin and Flagyl pending further workup. 7. P.R.N. Zofran. 8. Sepsis protocol with repeat lactic acid. 9. Monitor blood pressure closely. 10. Check urinalysis. 11. Strict Is and Os. 12. Hold nephrotoxic medications. 13. Serial cardiac enzymes. 14. Supplemental oxygen. 15. P.R.N. DuoNeb. 16. Bed rest and fall precautions. 17. Repeat labs in the morning. 18. SCDs for DVT prophylaxis. 19. Additional workup and consultants based on above. Dictated by Dona Feng/twan TD: 11/05/2016 06:14 JOB #: [id number] Unit #: [id number] #: [id number] Patient: TOY SCHWARTZ HISTORY AND PHYSICAL Page 1 of 1 X Kiera Penaloza MD X HISTORY AND PHYSICAL
--- NOTE | ~2016-11-04 | CT4 ---
[facility] A Service of [facility] RADIOLOGY TEXT RESULTS PATIENT: TOY SCHWARTZ LOCATION: C3A 320-01 : 30 UNIT #: [id number] AGE: [address]: Sylvie Lopez MD SEX: F ORDER DR: [id number] [facility] [address] [place], [place] [address] [id number] MR#: [id number] Acc #: [id number] NAME: TOY SCHWARTZ : 1930 SEX: F STUDY DATE/TIME: 11/04/2016 18:30 UNIT: C3A PCU ROOM: 320 STUDY DESCRIPTION: CT Abd and Pelv Wo Cont Attending Physician: Sylvie Lopez M.D. Ordering Physician: Jose Gotti M.D. Primary Care Physician: Kiki Braxton M.D. MEDICAL IMAGING REPORT This report is preliminary unless electronic signature is present EXAM CT abdomen and pelvis without IV contrast. COMPARISON October 09, 2009. INDICATIONS 86-year-old female with diffuse abdominal pain, nausea, emesis and diarrhea today. FINDINGS Axial CT imaging of the abdomen and pelvis was performed without IV contrast. Lack of IV contrast limits evaluation of adenopathy, vasculature and viscera. Coronal and sagittal reformats were constructed. This CT exam was performed with one or more of the following radiation dose reduction techniques: automatic exposure control, adjustment of mA and/or kV according to patient size, and iterative reconstruction. Tiny fat-containing umbilical hernia. Diffuse mild fatty atrophy of the musculature. Injection granulomas seen in the fat overlying the gluteus musculature bilaterally. Benign bone island in the body of the left iliac bone. Mild dextroscoliosis of the lumbar spine. Multilevel degenerative disc disease of the lumbar spine. There are small posterior disc protrusions at all levels of the lumbar spine with sparing at L1-L2. Multilevel degenerative endplate changes also noted of the lumbar spine, most significant at L3-L4. No acute fractures or suspicious osseous lesions. There is plate-like attenuation in the right lung base favoring atelectasis or scarring, not significantly changed from 2009. There is mild interlobular septal thickening in the lung bases, which can be seen in pulmonary edema. There is focal wall thickening of subsegmental branches of the right lower lobe bronchi in posterior basilar segment, perhaps reflecting an acute focal bronchitis. Focal nodular appearing opacity in the medial left lower lobe measures up to 6 mm, not significantly changed from 2010, and likely reflecting an area of round STS. [facility] A Service of [facility] RADIOLOGY TEXT RESULTS PATIENT: TOY SCHWARTZ LOCATION: [facility] 320-01 : 30 UNIT #: [id number] AGE: [address]: Sylvie Lopez MD SEX: F ORDER DR: atelectasis and/or part of an area of scarring. There are calcified granulomas in the liver and spleen. Prior cholecystectomy. There is fatty replacement of the pancreas. Adrenal glands are unremarkable. No definite renal abnormality on this noncontrast exam. There is questionable tiny hypoattenuation lesion measuring up to 5 mm in the midpole of the right kidney, which is too small to characterize. No hydronephrosis or hydroureter. No renal or ureteral calculi. Small amount of gas within the urinary bladder of uncertain etiology, possibly due to recent catheterization. Changes of hysterectomy are noted. No adnexal masses are seen. There is diverticulosis of the left colon and sigmoid colon without evidence of acute diverticulitis. No evidence of bowel obstruction. No free fluid or pneumoperitoneum. Abdominal aorta is normal in caliber. There are dense calcifications at the origin of the celiac, superior mesenteric and bilateral renal arteries, right greater than left. No visible adenopathy. IMPRESSION 1. Gas noted within the lumen of the urinary bladder, possibly due to recent Oropeza catheterization. Correlation to exclude signs of cystitis recommended. 2. Grossly stable band-like opacities in both lung bases with a stable 6 mm nodular density in the left lung base, favoring scarring and/or atelectasis. There is focal thickening of distal bronchial lagos in the posterior basilar segment right lower lobe, possibly reflecting an acute or chronic focal bronchitis. 3. Multilevel degenerative changes of the lumbar spine most significant for small multilevel posterior disc protrusions as described in the body of the report. 4. Prior cholecystectomy. There has also been prior hysterectomy. Not mentioned specifically in the body of the report, the appendix is normal. 5. Low-density lesion in the right kidney, which is too small to characterize. This was likely present in 2009 favoring a benign cyst. 6. Diffuse arterial calcification in the abdomen and pelvis, as described. There may be significant stenosis at the right renal artery, not well evaluated without contrast. 7. Diverticulosis without evidence of acute diverticulitis. Dictated by... Dewayne Rosa M.D. THIS IS AN ELECTRONICALLY VERIFIED REPORT Dewayne Rosa M.D. at 11/12/2016 8:02 PM BRITTNEY/twan TD: 11/05/2016 13:54 JOB #: [id number] [facility] A Service of [facility] RADIOLOGY TEXT RESULTS PATIENT: TOY SCHWARTZ LOCATION: A 320-01 : 30 UNIT #: [id number] AGE: [address]: Sylvie Lopez MD SEX: F ORDER DR: MEDICAL IMAGING REPORT Page 1 of 1 COPY
--- NOTE | ~2016-11-04 | DS ---
Unit #: [id number] #: [id number] Patient: TOY SCHWARTZ [id number] [address] [address] [id number] I MR#: [id number] NAME: TOY SCHWARTZ ROOM: 320 Age: 86 Sex: F Admission Date: 11/04/2016 : 1930 Discharge Date: 11/06/2016 Attending Physician: Sylvie Lopez M.D. Primary Care Physician: Kiki Braxton M.D. DISCHARGE SUMMARY PRINCIPAL DIAGNOSES 1. Sepsis secondary to diarrhea, question viral gastroenteritis versus bacterial. 2. Acute kidney injury, prerenal. Discharge creatinine 1.3. 3. Chronic hypoxic respiratory failure maintained on four liters of oxygen per nasal cannula continuously. 4. Chronic systolic congestive heart failure with ejection fraction of 20% to 25%. No acute exacerbation. 5. Chronic obstructive pulmonary disease. 6. Coronary artery disease. 7. Chronic leukocytosis. 8. Mild protein malnutrition. 9. Anxiety with depression. 10. Hyperlipidemia. 11. Iron deficiency anemia. 12. Mobitz type II bradyarrhythmia, status post permanent pacemaker placement. 13. Obstructive sleep apnea. 14. Gastroesophageal reflux disease. CONSULTANTS None. PROCEDURES 1. CT scan of the abdomen and pelvis without contrast on November 04, 2016, with gas in the lumen of the urinary bladder. Band-like opacities in both lungs with a stable nodular density in the left lung base consistent with scarring. Multilevel degenerative changes of the lumbar spine noted. Prior cholecystectomy noted. Diffuse arterial calcification in the abdomen and pelvis. Diverticulosis noted. 2. Chest x-ray on November 04, 2016, with hyperinflation of the lungs and diffuse interstitial prominence. CLINICAL HISTORY AND HOSPITAL COURSE Ms. Schwartz is a really nice 86-year-old female who presented to the emergency department with the abrupt onset of nausea, vomiting, and diarrhea. Please refer to H and P for further details. In the emergency department, patient was found to have an elevated white blood cell count of 18.9. She also was found to have an elevated creatinine of 2, up from a baseline of normal. She underwent CT scan of the abdomen and pelvis which was essentially unremarkable for any acute findings, and she was subsequently admitted. Unit #: [id number] #: [id number] Patient: SCHWARTZ,TOY In regards to patient's nausea and vomiting, she was placed on IV fluids and antiemetics, in addition to empiric antibiotics due to her elevated white blood cell count. Her nausea, vomiting, and diarrhea all resolved immediately following hospitalization. She had no fever during hospitalization. Her white blood cell count has trended down to 13 upon day of discharge. My clinical suspicion is this is a viral illness. Review of records also indicates she has a chronic leukocytosis. However, she may have been on steroids for her breathing during those readings. Due to her leukocytosis, I am going to place her on a few days of Flagyl, but leukocytosis can be followed up as an outpatient with referral to Hematology on an outpatient basis if it does not resolve. In regards to patient's acute kidney injury, nephrotoxic medications were discontinued, and she was placed on IV fluids. On the day of discharge, creatinine is now down to 1.3. She is eating and drinking well. I am going to hold her Lasix for a couple of days, in addition to her lisinopril which she can reinitiate as outlined below, and she should have a followup BMP on an outpatient basis with her primary care provider. Patient's other chronic conditions all remained stable including her chronic respiratory failure. We will continue home medications otherwise as noted. I will note that her hemoglobin on day of discharge was down to 8.4, but she had no evidence of bleeding, and I think she was significantly dry upon presentation. Hemoglobin can be followed up as an outpatient, and we did discuss oral supplementation on an outpatient basis and/or perhaps IV infusions if she is unable to tolerate oral iron. Please note, patient also had one evening of slight confusion which resolved the next day. I think she had a mild case of delirium, but no further workup was initiated. She had no neurologic deficits. DISCHARGE CONDITION Stable. DISCHARGE STATUS Discharge to home. DISCHARGE MEDICATIONS 1. Flagyl 500 mg p.o. t.i.d. for another 5 days. 2. DuoNeb nebulizer treatments 3 mL 4 times daily. 3. Oxygen at 4 liters per nasal cannula continuously. 4. Wellbutrin XL 150 mg daily. 5. Lexapro 10 mg daily. 6. Clonazepam 0.5 mg p.o. b.i.d. p.r.n. for anxiety. 7. Coreg 6.25 mg p.o. b.i.d. 8. Breo Ellipta 100/25 mcg 1 puff daily. 9. Lasix 40 mg p.o. daily to be restarted on November 08, 2016. 10. Simvastatin 80 mg at bedtime. 11. Lisinopril 10 mg daily to be restarted on November 08, 2016, if blood pressure at home is greater than 130. 12. Daily multivitamin. 13. Aspirin 81 mg daily. 14. Vitamin C 500 mg daily. 15. Vitamin B12 at 1000 mcg p.o. daily. 16. Vitamin D3 at 1000 units p.o. daily. 17. Mucinex DM 600 mg 2 tablets daily. 18. Magnesium oxide 400 mg p.o. daily. 19. Brilinta 90 mg b.i.d. Unit #: [id number] #: [id number] Patient: TOY SCHWARTZ 20. Calcium 600 at 2 tablets p.o. daily. DISCHARGE INSTRUCTIONS 1. Patient is instructed to follow a regular diet. 2. She can increase her activity as tolerated and to wear her oxygen at all times. FOLLOWUP Patient will follow up with her primary care provider, Kiki Braxton, in one week. She needs repeat evaluation of blood pressure and repeat basic metabolic panel at that time. All of this was discussed with the patient and her daughter. Greater than 36 minutes spent on discharge. Dictated by... Dona Wolfe/ervin TD: 11/08/2016 14:43 JOB #: [id number] Dictated by... Dona Wolfe/ervin TD: 11/08/2016 14:48 JOB #: [id number] DISCHARGE SUMMARY Page 1 of 1 X Sylvie Lopez MD X DISCHARGE SUMMARY
--- NOTE | ~2016-11-04 | CR72 ---
[facility] A Service of [facility] RADIOLOGY TEXT RESULTS PATIENT: TOY SCHWARTZ LOCATION: [facility] 320 : 30 UNIT #: [id number] AGE: [address]: Sylvie Lopez MD SEX: F ORDER DR: [id number] [facility] [address] [place], [place] [address] [id number] I MR#: [id number] #: [id number] NAME: TOY SCHWARTZ : 1930 SEX: F STUDY DATE/TIME: 11/04/2016 17:26 UNIT: [address] ROOM: 320 STUDY DESCRIPTION: CR Chest Single View Portable Attending Physician: Sylvie Lopez M.D. Ordering Physician: Jose Gotti M.D. Primary Care Physician: Kiki Braxton M.D. MEDICAL IMAGING REPORT This report is preliminary unless electronic signature is present EXAM AP view of the chest COMPARISON September 07, 2016, July 26, 2016, July 21, 2016. INDICATION 86-year-old female with dyspnea with activity today. Weakness and hypotension. FINDINGS Cardiomediastinal silhouette is within normal limits. Dual lead left chest pacemaker device is stable. Exam is slightly limited by apical lordotic technique. Interstitial prominence throughout the lungs is grossly stable and may reflect chronic lung disease. No convincing evidence of pneumothorax, pleural effusion or acute airspace disease. IMPRESSION Normal heart size with grossly stable diffuse interstitial prominence of the lungs perhaps reflecting chronic lung disease. No convincing evidence of acute airspace disease, pneumothorax or pleural effusion. Normal heart size. Dictated by... Dewayne Rosa M.D. THIS IS AN ELECTRONICALLY VERIFIED REPORT Dewayne Rosa M.D. at 11/09/2016 9:58 PM BRITTNEY/cynthia TD: 11/05/2016 11:52 JOB #: [id number] [facility] A Service of [facility] RADIOLOGY TEXT RESULTS PATIENT: SCHWARTZ,TOY LOCATION: [facility] 320 : 30 UNIT #: [id number] AGE: [address]: Sylvie Lopez MD SEX: F ORDER DR: MEDICAL IMAGING REPORT Page 1 of 1 COPY
--- NOTE | ~2016-11-04 | EKG ---
PATIENT: TOY SCHWARTZ UNIT #: [id number] Ventricular Rate: 70 BPM Atrial Rate: 44 BPM P-R Interval: 148 ms QRS Duration: 156 ms Q-T Interval: 500 ms QTC Calculation(Bezet): 540 ms Calculated R Earth: 91 degrees Calculated T Earth: 60 degrees Diagnosis Line: AV dual-paced rhythm Baseline wander Diagnosis Line: Abnormal ECG Diagnosis Line: When compared with ECG of 07-SEP-2016 12:58, Diagnosis Line: Premature ventricular complexes are no longer Diagnosis Line: Present Diagnosis Line: Vent. rate has decreased BY 2 BPM Diagnosis Line: Confirmed by SHELDON SABILLON MD ([id number]) on 11/07/2016 Diagnosis Line: 1:51:38 PM INTERPRETING MD: RAMANDEEP MTZ
[2016-11-04 17:28] LABS: POC - CKMB 3.2 ng/mL (0.0-7.9); POC - TROPONIN <0.05 ng/mL (<=0.05)
[2016-11-04 17:36] LABS: BASOPHIL# 0.1 X10e3 (0-0.3); BASOPHIL% 0.6 % (0-2.5); EOSINOPHIL# 0.1 X10e3 (0-0.7); EOSINOPHIL% 0.6 % (0.0-7.0); HEMATOCRIT 35.2 % (35.0-45.0); HEMOGLOBIN 11.4 gm/dL (12.0-16.0); LYMPHOCYTE# 2.4 X10e3 (1.0-3.5); LYMPHOCYTE% 12.6 % (17.0-45.0); MEAN CELL VOLUME 93.6 FL (83-96); MEAN CORPUSCULAR HEMOGLOBIN 30.3 PG (28-34); MEAN CORPUSCULAR HGB CONC 32.4 g/dL (30-36); MEAN PLATELET VOLUME 7.9 FL (6.5-11.5); MONOCYTE# 1.3 X10e3 (0-1.0); MONOCYTE% 6.7 % (3.0-12.0); NEUTROPHIL% 79.5 % (40-75); PLATELET COUNT 356 X10e3 (140-420); RED BLOOD COUNT 3.77 X10e (3.90-5.30); WHITE BLOOD COUNT 18.9 X10e3 (4.0-10.5)
[2016-11-04 17:38] LABS: DIFF IND YES
[2016-11-04 17:41] LABS: PARTIAL THROMBOPLASTIN TIME 21.1 SECONDS (23.5-31.3); PROTHROMBIN TIME (PATIENT) 10.4 SECONDS (10.0-11.7)
[2016-11-04 17:51] LABS: ALBUMIN SERUM 4.5 g/dL (3.5-5.0); ALKALINE PHOSPHATASE 48 U/L (32-92); ALT (SGPT) 28 U/L (10-40); AST (SGOT) 35 U/L (10-42); BILIRUBIN, DIRECT <0.1 mg/dL (0.0-0.2); BILIRUBIN,INDIRECT 0.6 mg/dL (0.0-0.9); BILIRUBIN,TOTAL 0.7 mg/dL (0.2-2.0); BLOOD UREA NITROGEN 32 mg/dL (9-23); CALCIUM SERUM 10.3 mg/dL (8.4-10.2); CARBON DIOXIDE 30 mmol/L (22-31); CHLORIDE 98 mmol/L (100-111); GLUCOSE FASTING 163 mg/dL (70-110); LIPASE 39 U/L (22-51); PROTEIN TOTAL SERUM 7.5 g/dL (6.0-8.3); SODIUM 136 mmol/L (135-145)
[2016-11-04 18:16] LABS: PLATELET ESTIMATE NORMAL (NORMAL)
[2016-11-04] MEDS ORDERED: ESCITALOPRAM OX10 MG PO (21:39)
[2016-11-04] MEDS ORDERED: LISINOPRIL10 MG PO (21:40)
[2016-11-04] MEDS ORDERED: CARVEDILOL6.25 MG PO (21:41)
[2016-11-04] MEDS ORDERED: ALDACTONE25 MG PO (21:41)
[2016-11-05 00:52] LABS: %MB 1.9 % (0.0-4.0); MB 7.1 ng/ml
[2016-11-05 01:44] LABS: URINE SOURCE CLEAN CATCH
[2016-11-05 01:47] LABS: URINE APPEARANCE CLOUDY; URINE BLOOD 2+ (NEG); URINE COLOR DK YELLOW; URINE GLUCOSE NEG (NEG); URINE KETONE TRACE (NEG); URINE LEUKOCYTE ESTERASE 2+ (NEG); URINE NITRATE NEG (NEG); URINE PROTEIN 2+ (NEG); URINE SPECIFIC GRAVITY 1.023 (1.003-1.035)
[2016-11-05 01:50] LABS: CULTURE INDICATED? YES; URINE BACTERIA AUWI NEG (NEGATIVE); URINE SQUAMOUS EPITHELIAL CELL MOD /[HPF]; UWBCS1 AUWI 25-50 (0-5)
[2016-11-05 02:09] LABS: URINE BILIRUBIN NEG (NEG)
[2016-11-05 08:11] LABS: ALBUMIN SERUM 3.4 g/dL (3.5-5.0); BILIRUBIN,TOTAL 0.3 mg/dL (0.2-2.0); BUN/CREATININE RATIO 18.42; CALCIUM SERUM 8.8 mg/dL (8.4-10.2); CREATININE SERUM 1.9 mg/dL (0.6-1.4); GLOM FILT RATE Estimated 23.5 mL/min (>60); POTASSIUM 4.7 mmol/L (3.5-5.1); PROTEIN TOTAL SERUM 6.1 g/dL (6.0-8.3)
[2016-11-05 08:29] LABS: %MB 1.8 % (0.0-4.0); MB 4.8 ng/ml
[2016-11-05 08:59] LABS: HEMOGLOBIN 9.6 gm/dL (12.0-16.0); MEAN CELL VOLUME 93.8 FL (83-96); MEAN CORPUSCULAR HGB CONC 33.1 g/dL (30-36); MEAN PLATELET VOLUME 7.8 FL (6.5-11.5); RED BLOOD COUNT 3.09 X10e (3.90-5.30); RED CELL DISTRIBUTION WIDTH 14.6 % (11.0-15.5); WHITE BLOOD COUNT 14.5 X10e3 (4.0-10.5)
[2016-11-06 04:50] LABS: HEMATOCRIT 26.3 % (35.0-45.0); HEMOGLOBIN 8.4 gm/dL (12.0-16.0); MEAN CELL VOLUME 94.5 FL (83-96); MEAN CORPUSCULAR HEMOGLOBIN 30.2 PG (28-34); MEAN CORPUSCULAR HGB CONC 31.9 g/dL (30-36); MEAN PLATELET VOLUME 7.9 FL (6.5-11.5); RED BLOOD COUNT 2.78 X10e (3.90-5.30); RED CELL DISTRIBUTION WIDTH 14.9 % (11.0-15.5)
[2016-11-06 06:18] LABS: BUN/CREATININE RATIO 16.42; CALCIUM SERUM 8.9 mg/dL (8.4-10.2); CREATININE SERUM 1.4 mg/dL (0.6-1.4); GLOM FILT RATE Estimated 33.9 mL/min (>60); MAGNESIUM 2.1 mg/dL (1.6-3.0); POTASSIUM 4.6 mmol/L (3.5-5.1)
[2016-11-06] MEDS ORDERED: FUROSEMIDE40 MG PO (17:07)
[2016-11-06] MEDS ORDERED: LISINOPRIL10 MG PO (17:08)
[2016-11-06] MEDS ORDERED: METRONIDAZOLE PO (17:11)
[2016-11-06] MEDS ORDERED: BRILINTA90 MG PO (17:12)
[2016-11-06] MEDS ORDERED: MAG-OXIDE400 MG PO (17:12)
[2016-11-06] MEDS ORDERED: CALCIUM PO (17:13)
[2016-11-06] MEDS ORDERED: VITAMIN D31000 UNI1 PO (17:14)
[2016-11-06] MEDS ORDERED: MUCINEX DM ER1 EACH PO (17:15)
== END 2016-11-06 18:28 | disposition home or self-care (01) | DRG 872 ==
LOC: CED 16:57 → C3A PCU 19:55
PROVIDERS: Emergency Medicine; Family Medicine; Internal Medicine
DX: A41.9 Sepsis, unspecified organism (principal); N17.9 Acute kidney failure, unspecified; J96.11 Chronic respiratory failure with hypoxia; F05 Delirium due to known physiological condition; I50.22 Chronic systolic (congestive) heart failure; A04.9 Bacterial intestinal infection, unspecified; E44.1 Mild protein-calorie malnutrition; A08.4 Viral intestinal infection, unspecified; J44.9 Chronic obstructive pulmonary disease, unspecified; I25.10 Atherosclerotic heart disease of native coronary artery without angina pectoris; Z95.5 Presence of coronary angioplasty implant and graft; Z68.23 Body mass index [BMI] 23.0-23.9, adult; F41.9 Anxiety disorder, unspecified; F32.9 Major depressive disorder, single episode, unspecified; E78.5 Hyperlipidemia, unspecified; D50.9 Iron deficiency anemia, unspecified; Z95.0 Presence of cardiac pacemaker; K21.9 Gastro-esophageal reflux disease without esophagitis; G47.33 Obstructive sleep apnea (adult) (pediatric); Z90.49 Acquired absence of other specified parts of digestive tract; Z90.710 Acquired absence of both cervix and uterus; Z87.891 Personal history of nicotine dependence; Z88.0 Allergy status to penicillin; Z88.2 Allergy status to sulfonamides; Z88.5 Allergy status to narcotic agent; Z80.0 Family history of malignant neoplasm of digestive organs; Z82.49 Family history of ischemic heart disease and other diseases of the circulatory system
CPT/HCPCS: 36415; 51702; 71010; 74176; 80048; 80053; 80076; 81003; 82550; 82553; 82947; 83605; 83690; 83735; 84300; 84484; 85025; 85027; 85610; 85730; 87040; 87045; 87086; 87177; 87209; 87427; 87493; 87899; 89190; 93005; 94640; 94664; 94760; 96361; 96374; 96375; 97116; 97162; 97166; 99291; G8978-GP; G8979-GP; G8987-GO; G8988-GO; G8989-GO; J1956; J2405